=== PATIENT | male | born 1955 | race Caucasian/White ===

== ENCOUNTER 2022-02-18 07:39 | Day surgery (SDC) | payer MEDICARE, BC ==
[2022-02-17 08:18] VITALS: BMI 29.0
[~2022-02-18 07:39] MED LIST: LACTATED RINGERS 1,000 ML IV SCH
[2022-02-18 07:58] VITALS: RESP 16; TEMP 97
[2022-02-18] MEDS ORDERED: LACTATED RINGERS 1,000 ML IV ONE (08:00)
[2022-02-18] MEDS ORDERED: PROPOFOL 10 MG/ML 20 ML VIAL IV ONE (08:43)
--- NOTE | 2022-02-18 08:44 | P.GSHP ---
History of Present Illness H&P Date: 02/18/22 Chief Complaint: Screening colonoscopy This a 58-year-old male presents today for screening colonoscopy. Patient denies any significant GI complaints. Past Medical History Past Medical History: Hypertension History of Any Multi-Drug Resistant Organisms: None Reported Past Surgical History: Joint Replacement Additional Past Surgical History / Comment(s): COLONOSCOPY. LT TARAN Past Anesthesia/Blood Transfusion Reactions: No Reported Reaction Smoking Status: Former smoker - Past Family History Mother Family Medical History: No Reported History Medications and Allergies Home Medications Medication Instructions Recorded Confirmed Type Losartan Potassium [Cozaar] 25 mg PO PC-SUPPER 10/01/15 02/18/22 History Allergies Allergy/AdvReac Type Severity Reaction Status Date / Time cat dander AdvReac Itching Verified 02/18/22 07:55 Surgical - Exam Vital Signs Temp Pulse Resp BP Pulse Ox 97 F L 55 L 16 183/81 98 02/18/22 07:55 02/18/22 07:55 02/18/22 07:55 02/18/22 07:55 02/18/22 07:55 - General well developed, well nourished, no distress - Eyes PERRL - ENT normal pinna - Neck no masses - Respiratory normal expansion - Cardiovascular Rhythm: regular - Abdomen Abdomen: soft, non tender Assessment and Plan Assessment: We'll perform screening colonoscopy
--- NOTE | 2022-02-18 08:58 | P.OP ---
Date of Procedure: 02/18/22 Preoperative Diagnosis: Screen colonoscopy Postoperative Diagnosis: Normal colonoscopy Procedure(s) Performed: Colonoscopy Anesthesia: MAC Surgeon: Darion Patterson Pathology: none sent Condition: stable Disposition: PACU Description of Procedure: PROCEDURE: The patient was placed on the endoscopy table in the lateral position. Digital rectal examination was performed which revealed no abnormalities. The prostate was symmetrical without nodules. Flexible colonoscope was then placed in the patient's anus and passed throughout the entire colon. The ileocecal valve was visualized. The cecum, ascending, transverse, descending and sigmoid colon were normal. The rectum was normal as well. There were no masses, polyps or diverticula noted in the entire colon. SUMMARY OF FINDINGS: Normal colonoscopy.
[2022-02-18 09:01] VITALS: PULSE 52
[2022-02-18 09:18] VITALS: BP 138/75
== END 2022-02-18 09:27 | disposition home or self-care (01) ==
LOC: ORWHC2ENDO 07:39
PROVIDERS: ATTEND Surgery
DX: Z12.11 Encounter for screening for malignant neoplasm of colon (principal); I10 Essential (primary) hypertension; I25.10 Atherosclerotic heart disease of native coronary artery without angina pectoris; E78.5 Hyperlipidemia, unspecified; G47.33 Obstructive sleep apnea (adult) (pediatric); E66.01 Morbid (severe) obesity due to excess calories; Z68.43 Body mass index [BMI] 50.0-59.9, adult; Z96.642 Presence of left artificial hip joint; Z87.891 Personal history of nicotine dependence; Z79.899 Other long term (current) drug therapy
CPT/HCPCS: J2704; G0121; 45378